=== PATIENT | male | born 1970 | race Two or more races ===

== ENCOUNTER 2024-02-02 22:21 | Inpatient (IN) | payer MEDICAID, OTHER ==
[~2024-02-02] VITALS: Ht 175.3 cm; Wt 85.0 kg
--- NOTE | 2024-02-02 22:51 | ED.PDOC ---
History of Present Illness HPI Comments 53-year-old male with PMHx GERD, HTN, Parkinson's Disease presents with a chief complaint of abdominal pain x 2 hours. Patient states that his pain is localized to his RUQ, non-radiating, describes as aching, and rates his pain a 7/10. Patient denies any current nausea, vomiting, or diarrhea at this time. Patient reports that he ate banana-nut bread prior to onset of his symptoms. No other symptoms or modifying factors present at this time. Chief Complaint: Abdominal Pain Time Seen by MD: 22:46 Reviewed Notes: Medications, Allergies Allergies: Coded Allergies: NO KNOWN ALLERGIES (Unverified , 02/02/24) Home Meds Reported Medications Hydrochlorothiazide (Hydrochlorothiazide) 25 Mg Tab, 25 MG PO DAILY for 30 Days, MG 02/03/24 Losartan Potassium (Losartan Potassium) 100 Mg Tab, 100 MG PO, TAB 02/03/24 Levodopa W/Carbidopa (Sinemet) 25 /100 Tab, 1 TAB PO Q8HR for 30 Days, TAB 02/03/24 Amlodipine Besylate (Amlodipine Besylate) 5 Mg Tab, 10 MG PO DAILY for 30 Days, MG 02/03/24 Information Source: Patient Mode of Arrival: Ambulatory Severity: Moderate Timing: Hours Duration: Since onset Prehospital treatment: None Past Medical History PAST MEDICAL HISTORY: GERD, HTN Past Medical History (Other): Parkinson's Disease Surgical History: Denies all surgeries Family History Family History: Reviewed,noncontributory to illness Social History Smoker: Non-Smoker Alcohol: Denies ETOH Use Drugs: Denies Drug Use Lives In: Home Constitutional: denies: chills, diaphoresis, fatigue, fever, malaise, sweats, weakness, others EENTM: denies: blurred vision, double vision, ear bleeding, ear discharge, ear drainage, ear pain, ear ringing, eye pain, eye redness, hearing loss, mouth pain, mouth swelling, nasal discharge, nose bleeding, nose congestion, nose pain, photophobia, tearing, throat pain, throat swelling, voice changes, others Respiratory: denies: cough, hemoptysis, orthopnea, SOB at rest, shortness of breath, SOB with excertion, stridor, wheezing, others Cardiovascular: denies: chest pain, dizzy spells, diaphoresis, Dyspnea on exertion, edema, irregular heart beat, left arm pain, lightheadedness, palpitati ons, PND, syncope, others Gastrointestinal: reports: abdominal pain; denies: abdomen distended, blood streaked bowels, constipated, diarrhea, dysphagia, difficulty swallowing, hematemesis, melena, nausea, poor appetite, poor fluid intake, rectal bleeding, rectal pain, vomiting, others Genitourinary: denies: burning, dysuria, flank pain, frequency, hematuria, incontinence, penile discharge, penile sore, pain, testicle pain, testicle swelling, urgency, others Neurological: denies: dizziness, fainting, headache, left sided numbness, left sided weakness, numbness, paresthesia, pre-existing deficit, right sided numbness, right sided weakness, seizure, speech problems, tingling, tremors, weakness, others Musculoskeletal: denies: back pain, gout, joint pain, joint swelling, muscle pa in, muscle stiffness, neck pain, others Integumetry: denies: bruises, change in color, change in hair/nails, dryness, laceration, lesions, lumps, rash, wounds, others Allergic/Immunocompromised: denies: Difficulty Healing, Frequent Infections, Hives, Itching, others Hematologic/Lymphatic: denies: anemia, blood clots, easy bleeding, easy bruising, swollen glands, others Endocrine: denies: excessive hunger, excessive sweating, excessive thirst, excessive urination, flushing, intolerance to cold, intolerance to heat, unexplained weight gain, unexplained weight loss, others Psychiatric: denies: anxiety, bipolar disorder, depression, hopeless, panic disorder, schizophrenia, sleepless, suicidal, others All Other Systems: Reviewed and Negative Physical Exam General Appearance: No Apparent Distress, Normal HEENT: Normal ENT Inspection, Pharynx Normal, TMs Normal Neck: Full Range of Motion, Non-Tender, Normal, Normal Inspection Respiratory: Chest Non-Tender, Lungs Clear, No Accessory Muscle Use, No Respiratory Distress, Normal Breath Sounds Cardiovascular: No Edema, No JVD, No Murmur, No Gallop, Normal Peripheral Pulses, Regular Rate/Rhythm Breast Exam: Deferred Gastrointestinal: Diffuse, No Organomegaly, No Pulsatile Mass, Normal Bowel Sounds, Soft, Tenderness Genitalia: Deferred Pelvic: Deferred Rectal: Deferred Extremities: No calf tenderness, Normal capillary refill, Normal inspection, No rmal range of motion, Non-tender, No pedal edema Musculoskeletal : Apperance: Normal Neurologic: Alert, office spec II-XII nml as Tested, No Motor Deficits, Normal Affect, Normal Mood, No Sensory Deficits Cerebellar Function: Normal Reflexes: Normal Skin: Dry, Normal Color, Warm Lymphatic: No Adenopathy Was a procedure done? Was a procedure done?: No Differential Dx Considerations may include: Gastroenteritis, cholecystitis, acute appendicitis, viral syndrome X-Ray, Labs, Meds, VS Vital Signs Date Time Temp Pulse Resp B/P (MAP) Pulse Ox O2 Delivery O2 Flow Rate FiO2 02/02/24 23:49 98.7 73 16 119/83 (95) 95 98.7 02/02/24 23:49 73 16 95 Room Air* 0 21 02/02/24 22:55 97.8 80 16 134/90 (105) 96 Lab Test 02/03/24 00:23 Range/Units White Blood Count 12.8 H 4.4-10.8 10^3/uL Red Blood Count 5.46 4.5-5.90 10^6/uL Hemoglobin 15.4 13.5-17.5 g/dL Hematocrit 45.0 41.0-53.0 % Mean Corpuscular Volume 82.4 80.0-100.0 fL Mean Corpuscular Hemoglobin 28.2 28.0-32.0 pg Mean Corpuscular Hemoglobin Concent 34.2 32.0-36.0 g/dL Red Cell Distribution Width 13.8 11.8-14.3 % Platelet Count 268 140-450 10^3/uL Mean Platelet Volume 8.6 6.9-10.8 fL Neutrophils (%) (Auto) 79.1 37.0-80.0 % Lymphocytes (%) (Auto) 13.3 10.0-50.0 % Monocytes (%) (Auto) 5.9 0.0-12.0 % Eosinophils (%) (Auto) 1.0 0.0-7.0 % Basophils (%) (Auto) 0.7 0.0-2.0 % Neutrophils # (Auto) 10.1 H 1.6-8.6 10 ^3/uL Lymphocytes # (Auto) 1.7 0.4-5.4 10 ^3/uL Monocytes # (Auto) 0.8 0-1.3 10 ^3/uL Eosinophils # (Auto) 0.1 0-0.8 10 ^3/uL Basophils # (Auto) 0.1 0-0.2 10 ^3/uL Nucleated Red Blood Cells 0.1 % Prothrombin Time 10.5 9.3-11.8 sec Prothrombin Time INR 0.99 0.9-1.15 Activated Partial Thromboplast Time 26.8 24.5-34.5 SEC Sodium Level 138 136-145 mmol/L Potassium Level 3.2 L 3.5-5.1 mmol/L Chloride Level 104 98-107 mmol/L Carbon Dioxide Level 27 20-31 mmol/L Anion Gap 7 5-15 Blood Urea Nitrogen 15 9-23 mg/dL Creatinine 1.09 0.700-1.30 mg/dL Glomerular Filtration Rate Calc 81 >90 mL/min BUN/Creatinine Ratio 13.8 10.0-20.0 Serum Glucose 107 H 74-106 mg/dL Calcium Level 8.0 L 8.7-10.4 mg/dL Magnesium Level 2.3 1.6-2.6 mg/dL Total Bilirubin 0.6 0.2-1.0 mg/dL Aspartate Amino Transferase (AST) 12 L 13-40 U/L Alanine Aminotransferase (ALT) 19 7-40 U/L Alkaline Phosphatase 30 L 46-116 U/L Total Protein 6.9 5.7-8.2 g/dL Albumin 4.1 3.2-4.8 g/dL Lipase 46 12-53 U/L Time of 1ST Reevaluation: 23:16 Reevaluation 1ST: Unchanged Patient Education/Counseling: Diagnosis, Treatment, Prognosis Family Education/Counseling: No Family Present Departure 1 Departure Time of Disposition: 06:13 (Patient presented with abdominal pain that was concerning for possible appendicits, gastritis, cholecystitis, colitis, gastroenteritis, sbo, or orther possible surgical emergency. Data: 1. I ordered and reviewed the result of at least 3 labs including a CBC, BMP, and Urinalysis. 2. I independently interpreted the following tests: CT Abdoment and Pelvis is concerning for acute cholecystitis .Risk:This patient has a high risk of morbidity due to further diagnostic testing or treatment and may suffer from an acute abdominal process disorder. Workup reveals acute cholecystitis and patient should be admitted for further workup. and possible expert consultation. ) Impression: Primary Impression: Acute cholecystitis Additional Impressions: Intractable abdominal pain Parkinsons disease Qualified Codes: G20.B2 - Parkinson's disease with dyskinesia, with fluctuations Disposition: 09 ADMITTED INPATIENT Admit to: Med Surg Condition: Serious Critical Care Note Critical Care Time?: Yes Critical care comment: Intractable abdominal pain Authorized and Performed by: Rossy Buckner MD Total critical care time: Approximately 36 minutes Due to a high probability of clinically significant, life threatening det erioration, the patient required my highest level of preparedness to intervene emergently and I personally spent this critical care time directly and personally managing the patient. This critical care time included obtaining a history; examining the patient; pulse oximetry; ordering and review of studies; arranging urgent treatment with development of a management plan; evaluation of patient's response to treatment; frequent reassessment; and, discussions with other providers. This critical care time was performed to assess and manage the high probability of imminent, life-threatening deterioration that could result in multi-organ failure. It was exclusive of separately billable procedures and treating other patients and teaching time. Please see my other sections and the rest of the note for further information on patient assessment and treatment. Stability Stability form required: No I personally scribed for ROSSY BUCKNER MD ([email or web address]) on 02/02/24 at 22:51. Electronically submitted by Garland Finch ([email or web address]). ROSSY BUCKNER MD Feb 02, 2024 22:51
[2024-02-02 23:49] VITALS: PULSE 73; RESP 16; O2SAT 95
[2024-02-02] MEDS: IOHEXOL 300 MG/ML 100ML BOTTLE IJ ONE (23:49)
[2024-02-02] MEDS: PANTOPRAZOLE 40 MG/10 ML VIAL INJ IV ONE (23:55)
[2024-02-02] MEDS: KETOROLAC TROMETH 30 MG/ML 1ML VIAL IV ONE (23:55)
[2024-02-02] MEDS: SODIUM CHLORIDE 0.9% 1,000 ML IV ONE (23:55)
[2024-02-02] MEDS: ONDANSETRON HCL 4 MG/2 ML VIAL IV ONE (23:55)
[2024-02-03] VITALS (7 sets, daily range): BP systolic 140–146; BP diastolic 75–91; PULSE 63–70; RESP 18–20; TEMP 97.7–99.3; O2SAT 96–99
[2024-02-03 00:32] LABS: Basophils # (auto) 0.1 10 ^3/uL (0-0.2); Basophils % (auto) 0.7 % (0.0-2.0); Eosinophils # (auto) 0.1 10 ^3/uL (0-0.8); Hemoglobin 15.4 g/dL (13.5-17.5); Lymphocytes # (auto) 1.7 10 ^3/uL (0.4-5.4); Lymphocytes % (auto) 13.3 % (10.0-50.0); Mean Corpuscular Hemoglobin 28.2 pg (28.0-32.0); Mean Corpuscular Hgb Conc. 34.2 g/dL (32.0-36.0); Mean Corpuscular Volume 82.4 fL (80.0-100.0); Monocytes # (auto) 0.8 10 ^3/uL (0-1.3); Monocytes % (auto) 5.9 % (0.0-12.0); Neutrophils # (auto) 10.1 10 ^3/uL (1.6-8.6); Neutrophils % (auto) 79.1 % (37.0-80.0); Nucleated Red Blood Cells % 0.1 %; Platelet Count (auto) 268 10^3/uL (140-450); Red Blood Cells 5.46 10^6/uL (4.5-5.90); Red Cell Distribution Width 13.8 % (11.8-14.3); White Blood Cell 12.8 10^3/uL (4.4-10.8)
--- NOTE | 2024-02-03 00:39 | DVH ---
CLINICAL HISTORY: abdominal pain TECHNIQUE: CT of the chest, abdomen and pelvis was performed with IV contrast . This exam was perform ed according to our departmental dose optimization program. Up-to-date CT equipment and radiation dos e reduction techniques are utilized as appropriate. CTDI: [CTDIvol] DLP: 521.31 COMPARISON: None FINDINGS: CHEST FINDINGS: Lower Neck: Unremarkable Axilla, Mediastinum and Sherry: Unremarkable. Heart and Great Vessels: Unremarkable. Airway, Lungs and Pleura: Sub 5 mm nodule along the right major fissure in the right lower lobe on se ileana 3 image 26 likely postinfectious or postinflammatory. No airspace consolidation, pleural effusio n, or pneumothorax. Chest Wall and Osseous Structures: Mild thoracic spondylosis. No destructive osseous lesion. Abdomen and Pelvis Findings: Liver and Biliary system: Unremarkable liver. Mild dilatation of the gallbladder with suggestion of m ild gallbladder wall thickening and cholelithiasis. No biliary ductal dilatation. Spleen: Unremarkable. Adrenal Glands and Kidneys: Unremarkable. Pancreas and Retroperitoneum: Unremarkable. Aorta and Major Vessels: Trace calcified plaque in the aortoiliac vessels which are widely patent. Bowel, Mesentery and Peritoneal space: Normal appendix. Normal caliber small and large bowel. Normal appendix. No free air or fluid collection. Pelvis: Unremarkable. Abdominal wall and Osseous Structures: Tiny sclerotic foci in the proximal femurs and pelvis likely b one islands. Mild lumbar spondylosis. No destructive osseous lesion. IMPRESSION: 1. Mild dilatation of the gallbladder containing cholelithiasis and suggestion of mild gallbladder wa ll thickening. Correlate clinically for acute cholecystitis and with right upper quadrant ultrasound. 2. No acute abnormality of the chest.
[2024-02-03 00:56] LABS: Alanine Aminotransferase 19 U/L (7-40); Albumin 4.1 g/dL (3.2-4.8); Anion Gap 7 (5-15); BUN/Creatinine Ratio 13.8 (10.0-20.0); Bilirubin, Total 0.6 mg/dL (0.2-1.0); Blood Urea Nitrogen 15 mg/dL (9-23); Carbon Dioxide 27 mmol/L (20-31); Chloride 104 mmol/L (98-107); Lipase 46 U/L (12-53); Sodium 138 mmol/L (136-145); Total Protein 6.9 g/dL (5.7-8.2)
[2024-02-03 01:22] LABS: Alkaline Phosphatase 30 U/L (46-116); Aspartate Aminotransferase 12 U/L (13-40); Glucose 107 mg/dL (74-106); Potassium 3.2 mmol/L (3.5-5.1)
--- NOTE | 2024-02-03 01:54 | DVH ---
ABDOMINAL ULTRASOUND CLINICAL HISTORY: RUQ Pain TECHNIQUE: Multiple grayscale and color Doppler ultrasound images were obtained of the abdomen. WID: COMPARISON: CT abdomen and pelvis from same day FINDINGS: Liver and Biliary System: Increased echogenicity of the liver. normal size measuring 15 cm. No foc al hepatic observations. No intrahepatic bile duct dilatation. The common duct measures 0.3 cm at t he tushar hepatis. The gallbladder demonstrates wall thickening measuring 4 mm, sludge and multiple mobile gallstones. The gallbladder is distended. Sonographic rueda's sign is negative.. Pancreas: Not well seen due to overlying bowel gas Kidneys: The right kidney is 9.7 cm No hydronephrosis, increased echogenicity, shadowing stone, or focal lesion. IMPRESSION: 1. Dilated gallbladder with cholelithiasis and wall thickening. Although sonographic rueda's sign is negative, findings otherwise support acute cholecystitis. Nuclear medicine HIDA scan could be perfo rmed if there is high clinical concern. 2. Hepatic steatosis.
[2024-02-03] MEDS: cefTRIAXone 2GM/50ML D5W 50 ML IV ONE (02:00)
--- NOTE | 2024-02-03 02:04 | DVHHPRES ---
History of Present Illness Resident Creating Document: VEE JAQUEZ History of Present Illness Patient is 53-year-old male with past medical history of hypertension and early onset Parkinson who came to the hospital with a chief complaint of acute onset of right epigastric region pain which started early in the morning on 02/02/2024. As per patient he never felt similar kind of pain, aggravated with intake of food. However patient has chronic history of GERD and epigastric region discomfort for long time, patient underwent EGD and colonoscopy which were unremarkable and his primary care physician recommended to follow with another colonoscopy in 10 years. Patient denied any other symptoms including fever, chills, nausea, vomiting, diarrhea, chest pain, shortness of breath, any other symptoms at this point. Reviewed CT abdomen which showed cholelithiasis with possible acute cholecystitis. Gallbladder ultrasound showed multiple mobile gallstone with thickening gallbladder. Given clinical and imaging study and elevated white count patient will be admitted to the hospital for further management of acute cholecystitis. Past Medical History Hypertension, Parkinson Past Surgical History: None Family History: None Past Social History History of marijuana and cocaine use in early younger age 20 years ago. Review of Systems Review of Systems Patient complaining of mild epigastric abdominal pain. Denying any other complaints including nausea vomiting, fever, chills, diarrhea, any other symptoms. Eyes: No Pain, No Vision change, No Conjunctivae inflammation, No Eyelid inflammation, No Other, No Redness ENT: No Ear pain, No Ear discharge, No Nose pain, No Nose discharge, No Nose congestion, No Mouth pain, No Mouth swelling, No Throat pain, No Throat swelling, No Other Cardiovascular: No Chest Pain, No Palpitations, No Orthopnea, No Paroxysmal Noc. Dyspnea, No Edema, No Lt Headedness, No Other Respiratory: No Cough, No Dry, No Shortness of breath, No SOB with excertion, No Wheezing, No Hemoptysis, No Pleuritic Pain, No Sputum, No Other Gastrointestinal: No Nausea, No Vomiting, Abdominal Pain, No Diarrhea, No Constipation, No Melena, No Hematochezia, No Other Genitourinary: No Dysuria, No Frequency, No Incontinence, No Hematuria, No Retention, No Other Musculoskeletal: No other, No neck pain, No shoulder pain, No arm pain, No back pain, No hand pain, No leg pain, No foot pain Skin: No Rash, No Lesions, No Jaundice, No Bruising, No Other Allergies: Coded Allergies: NO KNOWN ALLERGIES (Unverified , 02/02/24) Medications Current Medications Medications Dose Ordered Sig/Blake Route Start Time Stop Time Status Last Admin Dose Admin Ceftriaxone Sodium/Dextrose 50 ml @ 50 mls/hr DAILY IV 02/03/24 10:00 UNV Metronidazole 100 ml @ 100 mls/hr Q8HR IV 02/03/24 06:00 UNV Exam Vital Signs Vital Signs Date Time Temp Pulse Resp B/P (MAP) Pulse Ox O2 Delivery O2 Flow Rate FiO2 02/02/24 23:49 98.7 73 16 119/83 (95) 95 98.7 02/02/24 23:49 Room Air* 0 21 Exam General Appearance: Cooperative. Well developed. Well nourished. NAD Head Exam: Normal inspection Neck Exam: Normal inspection. Non-tender. Normal alignment Pulmonary/Respiratory: Chest non-tender. Clear bilateral breath sounds Cardiovascular/Chest: Regular rate and rhythm. No murmurs. No JVD. Peripheral Pulses: 2+ Radial (R). 2+ Radial (L). 2+ Pedal (R). 2+ Pedal (L) Abdominal Exam: Normal bowel sounds. Soft. Mild right upper quadrant tenderness on palpation, No hepatospenomegaly. No masses Ankle Exam: Negative ankle edema Lower extremities: Negative lower extremity edema Neuro/Mental Status: A&O x4. Coherent Thoughts/Psych: Normal thought pattern. Appropriate mood and affect. Good judgement and insight Appearance: In no acute distress Skin Exam: Normal inspection. Normal color. Warm. Dry Labs/Xrays Labs Test 02/03/24 00:23 Range/Units White Blood Count 12.8 H 4.4-10.8 10^3/uL Red Blood Count 5.46 4.5-5.90 10^6/uL Hemoglobin 15.4 13.5-17.5 g/dL Hematocrit 45.0 41.0-53.0 % Mean Corpuscular Volume 82.4 80.0-100.0 fL Mean Corpuscular Hemoglobin 28.2 28.0-32.0 pg Mean Corpuscular Hemoglobin Concent 34.2 32.0-36.0 g/dL Red Cell Distribution Width 13.8 11.8-14.3 % Platelet Count 268 140-450 10^3/uL Mean Platelet Volume 8.6 6.9-10.8 fL Neutrophils (%) (Auto) 79.1 37.0-80.0 % Lymphocytes (%) (Auto) 13.3 10.0-50.0 % Monocytes (%) (Auto) 5.9 0.0-12.0 % Eosinophils (%) (Auto) 1.0 0.0-7.0 % Basophils (%) (Auto) 0.7 0.0-2.0 % Neutrophils # (Auto) 10.1 H 1.6-8.6 10 ^3/uL Lymphocytes # (Auto) 1.7 0.4-5.4 10 ^3/uL Monocytes # (Auto) 0.8 0-1.3 10 ^3/uL Eosinophils # (Auto) 0.1 0-0.8 10 ^3/uL Basophils # (Auto) 0.1 0-0.2 10 ^3/uL Nucleated Red Blood Cells 0.1 % Sodium Level 138 136-145 mmol/L Potassium Level 3.2 L 3.5-5.1 mmol/L Chloride Level 104 98-107 mmol/L Carbon Dioxide Level 27 20-31 mmol/L Anion Gap 7 5-15 Blood Urea Nitrogen 15 9-23 mg/dL Creatinine 1.09 0.700-1.30 mg/dL Glomerular Filtration Rate Calc 81 >90 mL/min BUN/Creatinine Ratio 13.8 10.0-20.0 Serum Glucose 107 H 74-106 mg/dL Calcium Level 8.0 L 8.7-10.4 mg/dL Total Bilirubin 0.6 0.2-1.0 mg/dL Aspartate Amino Transferase (AST) 12 L 13-40 U/L Alanine Aminotransferase (ALT) 19 7-40 U/L Alkaline Phosphatase 30 L 46-116 U/L Total Protein 6.9 5.7-8.2 g/dL Albumin 4.1 3.2-4.8 g/dL Lipase 46 12-53 U/L Assessment/Plan Assessment/Plan Acute calculous cholecystitis with cholelithiasis -CT abdominal pelvis: Mild dilatation of the gallbladder containing cholelithiasis and suggestion of mild gallbladder wall thickening -gallbladder ultrasound pending -NPO -IV antibiotic with ceftriaxone 2 g once daily, metronidazole 500 mg t.i.d.. -surgery consultation Hypokalemia -IV 40 mEq potassium rider. -follow with magnesium level. History of hypertension -normotensive at this point. Continue to monitor blood pressure. Hold home blood pressure medication. -Home medication list: Amlodipine 10 mg p.o. daily, hydrochlorothiazide 25 mg p.o. daily, losartan 100 mg p.o. daily. History of Parkinson -on carbidopa levodopa 25/100 regime. Hold given NPO. PUD prophylaxis: Protonix 40 mg IV once daily DVT prophylaxis: Patient is ambulatory, not needed. Code status discussed greater than 22 minutes. Full code Plan discussed with Dr. Man Plan discussed with: Patient, Other My Orders Orders - VEE JAQUEZ RESIDENT Procedure Category Date Status Time Admit ADMIT 02/03/24 Transmitted 01:46 Ceftriaxone 2gm/50ml PHA 02/03/24 Logged D5w (Rocephin 2gm/5 02:00 Ceftriaxone 2gm/50ml PHA 02/03/24 Logged D5w (Rocephin 2gm/5 10:00 Metronidazole PHA 02/03/24 Logged 500mg/100ml (Flagyl 06:00 Metronidazole PHA 02/03/24 Logged 500mg/100ml (Flagyl 02:00 Npo (Nothing By DIET 02/03/24 Transmitted Mouth) Diet Breakfast * Surgical Consult CONS 02/03/24 Transmitted Sodium Chloride 0.9% PHA 02/03/24 Logged 02:00 Potassium Chl Rolo PHA 02/03/24 Verified KCL 02:00 Magnesium LAB 02/03/24 Verified 01:52 PTPTT LAB 02/03/24 Verified 01:52 Urinalysis LAB 02/03/24 Verified 01:52 Drug Screen LAB 02/03/24 Verified 01:52 Date of Service: Feb 03, 2024 Billing Provider: LYNDSEY MAN MD Common Visit Codes: [id number] INP/OBS CARE (HIGH) VEE JAQUEZ RESIDENT Feb 03, 2024 02:04 LYNDSEY MAN MD Feb 03, 2024 11:15
[2024-02-03] MEDS: SODIUM CHLORIDE 0.9% 1,000 ML IV ONE (02:48)
[2024-02-03] MEDS: metroNIDAZOLE 500MG/100ML 100 ML IV ONE (02:52)
[2024-02-03 03:24] LABS: INR 0.99 (0.9-1.15); Partial Thromboplastin Time 26.8 SEC (24.5-34.5); Prothrombin Time 10.5 sec (9.3-11.8)
[2024-02-03] MEDS: POTASSIUM CHL 20MEQ/100ML 100 ML IV SCH (04:00)
[2024-02-03] MEDS: SODIUM CHLORIDE 0.9% 1,000 ML IV SCH (04:24)
[2024-02-03] MEDS ORDERED: AMLO1TAB22 PO (08:56)
[2024-02-03] MEDS ORDERED: CARB-118 PO (08:59)
[2024-02-03] MEDS ORDERED: LOSA-535 PO (09:00)
[2024-02-03] MEDS ORDERED: HYDR25TA4 PO (09:01)
[2024-02-03] MEDS: PANTOPRAZOLE 40 MG/10 ML VIAL INJ IV SCH (09:22)
[2024-02-03] MEDS: metroNIDAZOLE 500MG/100ML 100 ML IV SCH (09:22)
[2024-02-03 10:47] LABS: Partial Thromboplastin Time 26.5 SEC (24.5-34.5); Prothrombin Time 10.6 sec (9.3-11.8)
[2024-02-03 17:03] LABS: Urine Bacteria None Seen /hpf (None Seen); Urine Blood Negative /uL (Negative); Urine Clarity Clear (Clear); Urine Color Light-Yellow (Yellow); Urine Mucus FEW (None Seen); Urine Protein, UAD Negative (Negative); Urine Specific Gravity 1.017 (1.001-1.035); Urine Urobilinogen Normal (Negative); Urine WBC 1 /hpf (0 - 3)
[2024-02-03 17:43] LABS: Amphetamine Screen, Urine Neg (NEGATIVE); Barbiturate Scree,Urine Neg (NEGATIVE); Benzodiazephine Screen, Urine Neg (NEGATIVE); Cannabinoid Screen, Urine Neg (NEGATIVE); Cocaine Screen, Urine Neg (NEGATIVE); Opiate Scree,Urine Neg (NEGATIVE); Phencyclidine Screen, Urine Neg (NEGATIVE)
[2024-02-03] MEDS: cefTRIAXone 2GM/50ML D5W 50 ML IV SCH (20:50)
--- NOTE | 2024-02-03 21:05 | DVHPNRES ---
Progress Note Date Seen: Feb 03, 2024 Resident Creating Document: YOHANA PUGA RESIDENT Medical Necessity Reason Pt with a Central, PICC or Fol: No Subjective Review of Systems 53-year-old male with past medical history of hypertension and early onset Parkinson who came to the hospital with a chief complaint of acute onset of right epigastric region pain which started early in the morning on 02/02/2024. Patient seen and examined at bedside. He is mentioning of improvement in his symptoms Ordered HIDA scan, awaiting surgical evaluation Objective vital signs Vital Sign Date Time Temp Pulse Resp B/P (MAP) Pulse Ox O2 Delivery O2 Flow Rate FiO2 02/03/24 17:14 97.7 68 20 146/91 (109) 97 97.7 02/03/24 08:00 Room Air* 0 21 Total Intake and Output 02/02/24 02/02/24 02/03/24 15:00 23:00 07:00 Intake Total 1425 ml Balance 1425 ml medications Current Medications Medications Dose Ordered Sig/Blake Route Start Time Stop Time Status Last Admin Dose Admin Ceftriaxone Sodium/Dextrose 50 ml @ 50 mls/hr DAILY@2100 IV 02/03/24 21:00 02/03/24 20:50 50 MLS/HR Metronidazole 100 ml @ 100 mls/hr Q8H IV 02/03/24 10:00 02/03/24 17:29 100 MLS/HR Pantoprazole Sodium 40 mg DAILY IV 02/03/24 10:00 02/03/24 09:22 40 MG Sodium Chloride 1,000 ml @ 75 mls/hr [id number] IV 02/03/24 04:15 02/03/24 17:29 75 MLS/HR Examination Examination General Appearance: Alert, Oriented X3, Cooperative, No acute distress HEENT: EOMI Respiratory: Clear to auscultation, Normal air movement Cardiovascular: Regular rate, Normal S1, Normal S2 Abdominal: Normal bowel sounds Extremities: No cyanosis, No edema, Normal pulses, No tenderness/swelling Skin: No rashes, No breakdown Neuro: Normal speech and tone laboratory and microbiology Laboratory Tests 02/03/24 00:23 Test 02/03/24 00:23 Range/Units Serum Glucose 107 H 74-106 mg/dL Problem List/Assessment/Plan Problem List/Assessment/Plan Assessment/plan #?Acute calculous cholecystitis #Cholelithiasis -CT abdominal pelvis: Mild dilatation of the gallbladder containing cholelithiasis and suggestion of mild gallbladder wall thickening -gallbladder ultrasound pending -NPO -IV antibiotic with ceftriaxone 2 g once daily, metronidazole 500 mg t.i.d.. -surgery consultation, awaiting -ordered HIDA scan #Hypokalemia -replaced -follow with magnesium level. #History of hypertension -normotensive at this point. Continue to monitor blood pressure. Hold home blood pressure medication. -Home medication list: Amlodipine 10 mg p.o. daily, hydrochlorothiazide 25 mg p.o. daily, losartan 100 mg p.o. daily. #History of Parkinson -on carbidopa levodopa 25/100 regime. Hold given NPO. DVT prophylaxis: Patient is ambulatory, not needed. Code status discussed greater than 22 minutes. Full code Plan discussed with Dr. Negro Plan discussed with: Patient, Other My Orders My Orders Orders - YOHANA PUGA Procedure Category Date Status Time Nm Hida Scan NM 02/03/24 Logged 14:41 Date of Service: Feb 03, 2024 Billing Provider: MORENA NEGRO MD Common Visit Codes: [id number] INP/OBS CARE(HIGH) YOHANA PUGA RESIDENT Feb 03, 2024 21:05 MORENA NEGRO MD Feb 04, 2024 08:37
[2024-02-04] VITALS (7 sets, daily range): BP systolic 132–158; BP diastolic 65–84; PULSE 62–79; RESP 17–20; TEMP 98–98.8; O2SAT 96–98
[2024-02-04 06:33] LABS: Basophils # (auto) 0.1 10 ^3/uL (0-0.2); Basophils % (auto) 1.2 % (0.0-2.0); Eosinophils # (auto) 0.3 10 ^3/uL (0-0.8); Hematocrit 44.5 % (41.0-53.0); Hemoglobin 15.2 g/dL (13.5-17.5); Lymphocytes % (auto) 26.7 % (10.0-50.0); Mean Corpuscular Hemoglobin 28.3 pg (28.0-32.0); Mean Corpuscular Hgb Conc. 34.2 g/dL (32.0-36.0); Mean Corpuscular Volume 82.8 fL (80.0-100.0); Monocytes # (auto) 0.7 10 ^3/uL (0-1.3); Monocytes % (auto) 9.3 % (0.0-12.0); Neutrophils # (auto) 4.4 10 ^3/uL (1.6-8.6); Neutrophils % (auto) 58.8 % (37.0-80.0); Nucleated Red Blood Cells % 0.2 %; Platelet Count (auto) 246 10^3/uL (140-450); Red Blood Cells 5.37 10^6/uL (4.5-5.90); Red Cell Distribution Width 13.8 % (11.8-14.3); White Blood Cell 7.5 10^3/uL (4.4-10.8)
[2024-02-04 06:34] LABS: Anion Gap 9 (5-15); Carbon Dioxide 26 mmol/L (20-31); Chloride 107 mmol/L (98-107); Sodium 142 mmol/L (136-145)
[2024-02-04 06:35] LABS: Calcium 9.2 mg/dL (8.7-10.4)
[2024-02-04 06:40] LABS: Blood Urea Nitrogen 10 mg/dL (9-23); Glucose 80 mg/dL (74-106); Magnesium 2.3 mg/dL (1.6-2.6)
[2024-02-04 06:42] LABS: Potassium 3.4 mmol/L (3.5-5.1)
--- NOTE | 2024-02-04 08:48 | DVH ---
Procedure: NM NM HIDA SCAN Exam Date: 02/04/2024 07:43 AM Clinical History: cholecystitis Comparison Study: 02/03/2024. Nuclear Medicine Hepatobiliary Scan. Technique: Following the intravenous administration of 4.2 mCi of Choletec 99m labeled Choletec multiple planar abdominal planar images were obtained in anterior projection in 5 minute intervals for45 minutes . Ri ght lateral images were obtained at 45 minutes after injection. Findings: The liver appears grossly normal in size. There is no abnormal persistence of the cardiac or blood po ol activity. There is prompt visualization of the gallbladder and excretion of activity into the smal l bowel. Impression: Unremarkable hepatobiliary study without evidence of acute cholecystitis.
[2024-02-04] MEDS: POTASSIUM EFFERVESENT TAB 25 MEQ PO ONE (10:45)
[2024-02-04] MEDS ORDERED: PANT40TA2 PO (13:36)
--- NOTE | 2024-02-04 14:33 | DVHDSRES ---
Discharge Summary Date of Admission Resident Creating Document: YOHANA PUGA Feb 03, 2024 at 01:46 Date of Discharge: Feb 04, 2024 Labs/Diagnostic Data: Laboratory Results Test 02/04/24 05:15 02/03/24 09:47 02/03/24 07:39 02/03/24 00:23 White Blood Count 7.5 10^3/uL (4.4-10.8) Red Blood Count 5.37 10^6/uL (4.5-5.90) Hemoglobin 15.2 g/dL (13.5-17.5) Hematocrit 44.5 % (41.0-53.0) Mean Corpuscular Volume 82.8 fL (80.0-100.0) Mean Corpuscular Hemoglobin 28.3 pg (28.0-32.0) Mean Corpuscular Hemoglobin Concent 34.2 g/dL (32.0-36.0) Red Cell Distribution Width 13.8 % (11.8-14.3) Platelet Count 246 10^3/uL (140-450) Mean Platelet Volume 8.9 fL (6.9-10.8) Neutrophils (%) (Auto) 58.8 % (37.0-80.0) Lymphocytes (%) (Auto) 26.7 % (10.0-50.0) Monocytes (%) (Auto) 9.3 % (0.0-12.0) Eosinophils (%) (Auto) 4.0 % (0.0-7.0) Basophils (%) (Auto) 1.2 % (0.0-2.0) Neutrophils # (Auto) 4.4 10 ^3/uL (1.6-8.6) Lymphocytes # (Auto) 2.0 10 ^3/uL (0.4-5.4) Monocytes # (Auto) 0.7 10 ^3/uL (0-1.3) Eosinophils # (Auto) 0.3 10 ^3/uL (0-0.8) Basophils # (Auto) 0.1 10 ^3/uL (0-0.2) Nucleated Red Blood Cells 0.2 % Sodium Level 142 mmol/L (136-145) Potassium Level 3.4 mmol/L (3.5-5.1) Chloride Level 107 mmol/L (98-107) Carbon Dioxide Level 26 mmol/L (20-31) Anion Gap 9 (5-15) Blood Urea Nitrogen 10 mg/dL (9-23) Creatinine 0.91 mg/dL (0.700-1.30) Glomerular Filtration Rate Calc 100 mL/min (>90) BUN/Creatinine Ratio 11.0 (10.0-20.0) Serum Glucose 80 mg/dL (74-106) Calcium Level 9.2 mg/dL (8.7-10.4) Magnesium Level 2.3 mg/dL (1.6-2.6) Prothrombin Time 10.6 sec (9.3-11.8) Prothrombin Time INR 1.00 (0.9-1.15) Activated Partial Thromboplast Time 26.5 SEC (24.5-34.5) Urine Color Light-yellow (Yellow) Urine Clarity Clear (Clear) Urine pH 6.0 (5.0-9.0) Urine Specific [place] 1.017 (1.001-1.035) Urine Protein Negative (Negative) Urine Ketones Negative (Negative) Urine Blood Negative /uL (Negative) Urine Nitrite Negative (Negative) Urine Bilirubin Negative (Negative) Urine Urobilinogen Normal mg/dL (Negative) Urine Leukocyte Esterase Negative /uL (Negative) Urine RBC 1 /hpf (0 - 3) Urine WBC 1 /hpf (0 - 3) Urine Squamous Epithelial Cells Few /hpf (<5) Urine Bacteria None seen /hpf (None Seen) Urine Mucus Few (None Seen) Urine Glucose Normal mg/dL (Normal) Urine Opiates Screen Neg (NEGATIVE) Urine Fentanyl Screen Neg (NEGATIVE) Urine Barbiturates Screen Neg (NEGATIVE) Urine Phencyclidine Screen Neg (NEGATIVE) Urine Amphetamines Screen Neg (NEGATIVE) Urine Benzodiazepines Screen Neg (NEGATIVE) Urine Cocaine Screen Neg (NEGATIVE) Urine Cannabinoids Screen Neg (NEGATIVE) Total Bilirubin 0.6 mg/dL (0.2-1.0) Aspartate Amino Transferase (AST) 12 U/L (13-40) Alanine Aminotransferase (ALT) 19 U/L (7-40) Alkaline Phosphatase 30 U/L (46-116) Total Protein 6.9 g/dL (5.7-8.2) Albumin 4.1 g/dL (3.2-4.8) Lipase 46 U/L (12-53) Other Laboratory Tests 02/04/24 05:15 Brief Hx & Hospital Course: 53-year-old male with past medical history of hypertension and early onset Parkinson who came to the hospital with a chief complaint of acute onset of right epigastric region pain which started early in the morning on 02/02/2024. CT abdominal pelvis showed Mild dilatation of the gallbladder containing cholelithiasis and suggestion of mild gallbladder wall thickening. Patient was started on IV Protonix, IV fluids, pain medications and ceftriaxone and metronidazole for possible cholecystitis. Gallbladder ultrasound revealed Dilated gallbladder with cholelithiasis and wall thickening. Although sonographic Lewis's sign is negative, findings otherwise support acute cholecystitis. Nuclear medicine HIDA scan could be performed if there is high clinical concern. Surgery was consulted. Patient mentioned improvement in his symptoms. HIDA scan was done which revealed Unremarkable hepatobiliary study without evidence of acute cholecystitis. At the time of discharge, patient had stable vitals, no new complaints. Discharge plan was discussed with the patient patient advised to follow up with PCP/DC clinic within one week and surgery within 1-2 weeks. Patient was prescribed Protonix 80 mg daily for seven days. Condition at Discharge: Stable Final Diagnosis/Problems List cholelitihiasis without cholecystitis possible gastritis Discharge Disposition: Home Discharge Instruct/Medications Diet: Regular Activity: No Restrictions, As Tolerated Follow Up/Referral: f/u with DC clinic within 1 week f/u with surgeon within 1-2 week Medications: protonix Discharge Statement: "Patient was advised to return to the ER or call 911 if any headaches, dizziness, shortness of breath, chest pain, abdominal pain, bleeding, fevers, or worsening of medical condition. Patient was counseled about treatment plan, medications, possible side effects, patientverbalized understanding. All questions were answered to the best of my ability. This discharge took greater then 30 minutes in planning, reviewing documentation, counseling the patient, and discussing with other team members." ASSESSMENT ASSESSMENT Assessment cholelitihiasis without cholecystitis possible gastritis Date of Service: Feb 04, 2024 Billing Provider: MORENA NEGRO MD Common Visit Codes: 40709-[facility]/OBS DISCH DAY >30min YOHANA PUGA RESIDENT Feb 04, 2024 14:33 MORENA NEGRO MD Feb 05, 2024 09:01
== END 2024-02-04 17:47 | disposition home or self-care (01) ==
LOC: ER 22:21 → OVERFLOW 02-03 01:46 → EAST 02-03 05:10
PROVIDERS: ADMIT Student in an Organized Health Care Education/Training Program; ATTEND Emergency Medicine
DX: K80.20 Calculus of gallbladder without cholecystitis without obstruction (principal); G20.A1 Parkinson's disease without dyskinesia, without mention of fluctuations; E87.6 Hypokalemia; K29.70 Gastritis, unspecified, without bleeding; I10 Essential (primary) hypertension; K21.9 Gastro-esophageal reflux disease without esophagitis; K82.8 Other specified diseases of gallbladder
CPT/HCPCS: 36415; 71260; 74177; 76705; 78226; 80048; 80053; 80307; 81001; 83690; 83735; 85025; 85610; 85730; 86850; 86900; 86901; 96361; 96374; 96375; 99291; G0378; J1885; J2470; J3480; J3490